=== PATIENT | male | born 1935 | race Caucasian/White ===

== ENCOUNTER → 2018-04-27 | Outpatient (CLI) | payer MEDICARE, OTHER ==
--- NOTE | 2018-04-27 16:51 | REP ---
Chest x-ray: Two views. History: Cough. Comparison study: September 27, 2014. Findings: There is a stable granuloma projecting in the left upper lung zone. The lungs are otherwise well inflated and clear. Pleural angles are sharp. Heart is not enlarged. The aorta is calcific and tortuous. There are degenerative changes in the thoracic spine. Impression: No active disease. Old granuloma left upper lung zone. Electronically Signed by Dajuan Clements MD 04/27/2018 04:43 P
== END ==
LOC: M LRY 16:14
PROVIDERS: ATTEND Physician Assistant
DX: J98.8 Other specified respiratory disorders (principal); R05 Cough
CPT/HCPCS: 71046; G0463

== ENCOUNTER → 2018-04-27 | Outpatient (CLI) | payer MEDICARE, OTHER | LOC: M LRY 16:18 | PROVIDERS: ATTEND Physician Assistant | DX: R05 Cough (principal); Z53.8 Procedure and treatment not carried out for other reasons ==

== ENCOUNTER 2018-05-30 09:56 | Emergency (ER) | payer MEDICARE, OTHER ==
[~2018-05-30] VITALS: Ht 165.1 cm; Wt 61.4 kg
--- NOTE | 2018-05-30 12:13 | REP ---
A PA and lateral chest: There are no comparisons. There is a 7 mm left upper lobe lung nodule. There are no infiltrates. No pleural effusions. Cardiac size is normal. The perez, mediastinum, skeletal structures are unremarkable except for a right humeral head orthopedic screw. Impression: Left upper lobe 7 mm lung nodule. Electronically Signed by Vickey Murray MD 05/30/2018 12:05 P
[2018-05-30 12:29] LABS: BASO % 0.3 % (0.0-1.0); EOS # 0.2 10^3/uL (0.0-0.50); EOS % 2.8 % (0.0-3.0); HEMATOCRIT 40.3 % (42.0-52.0); HEMOGLOBIN 13.6 g/dl (13.5-17.5); LYMPH # 1.1 10^3/uL (1.5-4.5); LYMPH % 18.4 % (24.0-44.0); MEAN CORPUSCULAR HEMOGLOBIN 32.9 pg (27.0-33.0); MEAN CORPUSCULAR HGB CONC 33.7 g/dl (32.0-36.5); MEAN CORPUSCULAR VOLUME 97.6 fl (80.0-96.0); MONO # 0.8 10^3/uL (0.0-0.8); MONO % 12.7 % (0.0-5.0); NEUTROPHILS % 65.5 % (36.0-66.0); PLATELET COUNT, AUTOMATED 283 10^3/uL (150-450); RED BLOOD COUNT 4.13 10^6/uL (4.30-6.10); WHITE BLOOD COUNT 6.1 10^3/uL (4.0-10.0)
[2018-05-30 12:54] LABS: ALBUMIN 3.6 GM/DL (3.2-5.2); ALT/SGPT 20 U/L (12-78); BILIRUBIN,DIRECT < 0.1 MG/DL (0.0-0.2); BILIRUBIN,TOTAL 0.7 MG/DL (0.2-1.0); BLOOD UREA NITROGEN 32 MG/DL (7-18); CARBON DIOXIDE LEVEL 29 MEQ/L (21-32); CHLORIDE LEVEL 105 MEQ/L (98-107); GLOMERULAR FILTRATION RATE > 60.0 (>35); GLUCOSE, FASTING 104 MG/DL (70-100); NT-PRO BNP 20 PG/ML (<450); POTASSIUM SERUM 5.1 MEQ/L (3.5-5.1); SODIUM LEVEL 138 MEQ/L (136-145); TOTAL PROTEIN 6.7 GM/DL (6.4-8.2)
[2018-05-30 13:27] VITALS: BP 119/62
[2018-05-30] MEDS ORDERED: MUCI600T37 PO (13:44)
[2018-05-30] MEDS ORDERED: BENZ200C70 PO (13:44)
--- NOTE | 2018-05-30 21:32 | ECGEPIP ---
Stationary ECG Study [facility] - ED Test Date: 2018-05-30 Pat Name: OSIRIS SYKES Department: Room: - Gender: M Spike Machine Feeder: : 1935 Requested By: JASON CALDERON PA-C. Order Number: [id number] Reading MD: Jim Nuñez Measurements Intervals [place] Rate: 66 P: 58 SD: 159 QRS: 69 QRSD: 137 T: -29 QT: 429 QTc: 452 Interpretive Statements SINUS RHYTHM INTRAVENTRICULAR CONDUCTION DELAY POSSIBLE ANTERIOR MYOCARDIAL INFARCTION, OF INDETERMINATE AGE NO PRIORS FOR COMPARISON Electronically Signed On 05-30-2018 21:31:58 EDT by Jim Nuñez
--- NOTE | 2018-05-31 14:57 | ED PDOC ---
Post-Departure Follow-Up dr mike green and GRACE fxed formal repoirt of cxr for fu hollyg John Hahn MD May 31, 2018 14:57
== END 2018-05-30 13:52 | disposition home or self-care (01) ==
LOC: MERGE 09:56 → M ED 09:56
DX: R05 Cough (principal); R91.1 Solitary pulmonary nodule; I10 Essential (primary) hypertension; N40.0 Benign prostatic hyperplasia without lower urinary tract symptoms; Z87.891 Personal history of nicotine dependence

== ENCOUNTER → 2018-08-05 | Outpatient (CLI) | payer MEDICARE, OTHER ==
[~2018-08-05] MED LIST: BENZ200C70 PO; MUCI600T37 PO
[2018-08-11 00:06] LABS: CRYPTOCOCCUS ANTIBODY SERUM Negative (Neg:<1:2)
== END ==
LOC: M LAB 12:56
PROVIDERS: ATTEND Nurse Practitioner Adult Health
DX: J67.2 Bird fancier's lung (principal)

== ENCOUNTER 2018-12-24 12:47 | Emergency (ER) | payer MEDICARE, OTHER ==
[~2018-12-24 12:47] MED LIST changes: -AMLO5TAB6 PO; -ASPI81CH10 PO; -HYDR25TAB PO; -LISI40TA PO; -TAMS1CAP17 PO
[2018-12-24] MEDS ORDERED: TAMS1CAP17 PO (14:16)
[2018-12-24] MEDS ORDERED: AMLO5TAB6 PO (14:16)
[2018-12-24] MEDS ORDERED: ASPI81CH10 PO (14:16)
[2018-12-24] MEDS ORDERED: HYDR25TAB PO (14:16)
[2018-12-24] MEDS ORDERED: LISI40TA PO (14:16)
--- NOTE | 2018-12-24 16:03 | REP ---
Clinical: Altered mental status. Comparison: 09/27/2014 . Findings: Age-related atrophy with periventricular leukomalacia and microvascular ischemic changes are appreciated. The ventricles and sulci are symmetric. Cassidy-white differentiation is maintained. There is no evidence for acute intracranial hemorrhage, mass/mass effect, pathology or infarction. No extra-axial fluid collection. Calvarium is intact. Paranasal sinuses and mastoid air cells are clear. Impression: Age related atrophy and microvascular ischemic changes. No acute intracranial hemorrhage, infarction, or mass/mass effect. Electronically Signed by Tre Quiñones MD 12/24/2018 03:54 P
[2018-12-24 16:12] LABS: BASO % 0.4 % (0.0-1.0); EOS # 0.2 10^3/uL (0.0-0.5); EOS % 2.6 % (0.0-3.0); HEMATOCRIT 40.5 % (42.0-52.0); HEMOGLOBIN 13.1 g/dl (13.5-17.5); LYMPH # 1.1 10^3/uL (1.5-5.0); LYMPH % 19.9 % (24.0-44.0); MEAN CORPUSCULAR HEMOGLOBIN 32.7 pg (27.0-33.0); MEAN CORPUSCULAR HGB CONC 32.3 g/dl (32.0-36.5); MONO # 0.7 10^3/uL (0.0-0.8); MONO % 12.3 % (0.0-5.0); NEUTROPHILS # 3.7 10^3/uL (1.5-8.5); NEUTROPHILS % 64.6 % (36.0-66.0); PLATELET COUNT, AUTOMATED 252 10^3/uL (150-450); RED BLOOD COUNT 4.01 10^6/uL (4.30-6.10); WHITE BLOOD COUNT 5.7 10^3/uL (4.0-10.0)
[2018-12-24 16:51] LABS: ALBUMIN 3.4 GM/DL (3.2-5.2); ALT/SGPT 24 U/L (12-78); BILIRUBIN,DIRECT 0.2 MG/DL (0.0-0.2); BILIRUBIN,TOTAL 0.6 MG/DL (0.2-1.0); BLOOD UREA NITROGEN 19 MG/DL (7-18); CALCIUM LEVEL 8.4 MG/DL (8.8-10.2); CARBON DIOXIDE LEVEL 31 MEQ/L (21-32); CHLORIDE LEVEL 104 MEQ/L (98-107); CK-MB VALUE MASS 2.2 NG/ML (<3.6); CPK CREATINE PHOSPHOKINASE 67 U/L (39-308); CREATININE FOR GFR 0.61 MG/DL (0.70-1.30); GLOMERULAR FILTRATION RATE > 60.0 (>35); GLUCOSE, FASTING 88 MG/DL (70-100); MB/CK RELATIVE INDEX 3.28 (< OR =4); POTASSIUM SERUM 3.8 MEQ/L (3.5-5.1); SODIUM LEVEL 141 MEQ/L (136-145); THYROID STIMULATING HORMONE 0.821 uIU/ML (0.358-3.740); TOTAL PROTEIN 6.3 GM/DL (6.4-8.2); TROPONIN I < 0.02 NG/ML (< 0.10)
[2018-12-24 17:14] LABS: BILIRUBIN, URINE MANUAL NEGATIVE (NEGATIVE); GLUCOSE, URINE (UA) MANUAL NEGATIVE (NEGATIVE); KETONE, URINE MANUAL NEGATIVE (NEGATIVE); UROBILINOGEN, URINE MANUAL NORMAL (NORMAL)
[2018-12-24 18:48] VITALS: BP 152/90
--- NOTE | 2018-12-25 11:56 | ECGEPIP ---
[facility] - ED Test Date: 2018-12-24 Pat Name: OSIRIS SYKES Department: Room: - Gender: Male Medical Attendant: PMO : 1935 Requested By: SHARMILA Davalos Order Number: [id number] Reading MD: Zora Hart Measurements Intervals [place] Rate: 62 P: 40 [place]: 132 QRS: 68 QRSD: 135 T: -43 QT: 462 QTc: 471 Interpretive Statements SINUS RHYTHM LBBB SIMILAR 09/27/14 Electronically Signed on 12-25-2018 11:55:56 EST by Zora Hart
== END 2018-12-24 18:49 | disposition home or self-care (01) ==
LOC: M ED 12:47
DX: J40 Bronchitis, not specified as acute or chronic (principal); R41.0 Disorientation, unspecified; I10 Essential (primary) hypertension; M43.26 Fusion of spine, lumbar region; Z87.891 Personal history of nicotine dependence; Z79.82 Long term (current) use of aspirin; Z79.899 Other long term (current) drug therapy
CPT/HCPCS: 36415; 70450; 71046; 80048; 80076; 82140; 82550; 82553; 83605; 84443; 84484; 85025; 87040; 93005; 93041; 94760; 99284; G0463

== ENCOUNTER → 2018-12-24 | Outpatient (CLI) | payer MEDICARE, OTHER ==
[~2018-12-24] MED LIST changes: +AMLO5TAB6 PO; +ASPI81CH10 PO; +HYDR25TAB PO; +LISI40TA PO; +TAMS1CAP17 PO
--- NOTE | 2018-12-24 10:43 | REP ---
Clinical: Cough. Technique: PA and lateral. Comparison: 05/30/2018. Findings: Mediastinum and cardiac silhouette are within normal limits and stable. Chronic changes are noted. Subtle basilar atelectasis cannot be excluded. No obvious effusion. No pneumothorax. Skeletal structures demonstrate age-related degenerative changes. Impression: Chronic stable changes. Cannot exclude trace basilar atelectasis. Electronically Signed by Tre Quiñones MD 12/24/2018 10:34 A
== END ==
LOC: M LRY 10:12
PROVIDERS: ATTEND Physician Assistant
DX: R91.8 Other nonspecific abnormal finding of lung field (principal); R05 Cough

== ENCOUNTER 2019-01-02 08:07 | Emergency (ER) | payer MEDICARE, OTHER ==
[~2019-01-02 08:07] MED LIST changes: +AMLO5TAB6 PO; +ASPI81CH10 PO; +HYDR25TAB PO; +LISI40TA PO; +TAMS1CAP17 PO
[2019-01-02 09:34] LABS: BASO % 0.6 % (0.0-1.0); EOS # 0.1 10^3/uL (0.0-0.5); EOS % 1.7 % (0.0-3.0); HEMATOCRIT 45.4 % (42.0-52.0); LYMPH % 22.3 % (24.0-44.0); MEAN CORPUSCULAR HEMOGLOBIN 33.3 pg (27.0-33.0); MEAN CORPUSCULAR VOLUME 100.9 fl (80.0-96.0); MONO # 0.7 10^3/uL (0.0-0.8); MONO % 14.5 % (0.0-5.0); NEUTROPHILS # 2.8 10^3/uL (1.5-8.5); NEUTROPHILS % 60.7 % (36.0-66.0); PLATELET COUNT, AUTOMATED 287 10^3/uL (150-450); WHITE BLOOD COUNT 4.6 10^3/uL (4.0-10.0)
[2019-01-02 10:12] LABS: ALBUMIN 3.7 GM/DL (3.2-5.2); ALT/SGPT 26 U/L (12-78); BILIRUBIN,DIRECT 0.2 MG/DL (0.0-0.2); BILIRUBIN,TOTAL 0.6 MG/DL (0.2-1.0); BLOOD UREA NITROGEN 20 MG/DL (7-18); CALCIUM LEVEL 9.4 MG/DL (8.8-10.2); CARBON DIOXIDE LEVEL 32 MEQ/L (21-32); CHLORIDE LEVEL 102 MEQ/L (98-107); CK-MB VALUE MASS 2.9 NG/ML (<3.6); CPK CREATINE PHOSPHOKINASE 88 U/L (39-308); CREATININE FOR GFR 0.81 MG/DL (0.70-1.30); GLOMERULAR FILTRATION RATE > 60.0 (>35); GLUCOSE, FASTING 94 MG/DL (70-100); LIPASE 116 U/L (73-393); POTASSIUM SERUM 4.3 MEQ/L (3.5-5.1); SODIUM LEVEL 139 MEQ/L (136-145); TOTAL PROTEIN 7.3 GM/DL (6.4-8.2); TROPONIN I < 0.02 NG/ML (< 0.10)
[2019-01-02] MEDS ORDERED: ISOVUE-370 76% 100ML VIAL (Q9967) As Ordered ONE (10:20)
[2019-01-02 10:24] LABS: OSMOLALITY SERUM 294 MOSM/KG (280-301)
[2019-01-02 10:26] LABS: VITAMIN B12 LEVEL 591 PG/ML (247-911)
[2019-01-02 10:28] LABS: FOLATE > 24.0 NG/ML (>5.4)
--- NOTE | 2019-01-02 10:58 | REP ---
CT abdomen and pelvis with IV but without oral contrast: History: Abdomen pain. CT contrast dose: 100 mL of intravenous Isovue [address] findings: Preliminary digital senior staff consultant radiograph is unremarkable. There is mild bilateral lower lobe pulmonary parenchymal fibrosis on lung window settings. The liver and the spleen are normal in size, homogeneous in texture. No adrenal lesion is seen. The gallbladder and pancreas are unremarkable. The kidneys enhance symmetrically. They are morphologically intact. There is a tiny cyst on the left kidney. Tortuous normal caliber aorta is seen with atherosclerotic plaquing. No retroperitoneal mass or adenopathy is seen. Seminal vesicles and urinary bladder are unremarkable. The prostate is mildly prominent but otherwise intact. There is left colonic diverticulosis without CT evidence of diverticulitis. The appendix is not visible. There is no inflammatory change adjacent to the cecal tip. Impression: Left colonic diverticulosis without diverticulitis changes. Somewhat prominent prostate gland. Otherwise unremarkable CT study abdomen and pelvis. No acute abnormality seen. Electronically Signed by Dajuan Clements MD 01/02/2019 01:46 P
--- NOTE | 2019-01-03 07:34 | ECGEPIP ---
[facility] - ED Test Date: 2019-01-02 Pat Name: OSIRIS SYKES Department: Room: - Gender: Male Composing Room Supervisor: : 1935 Requested By: Zora Hart Order Number: [id number] Reading MD: Claudio Briceno Measurements Intervals [place] Rate: 60 P: 48 [place]: 153 QRS: -7 QRSD: 138 T: 19 QT: 437 QTc: 440 Interpretive Statements SINUS RHYTHM LEFT BUNDLE BRANCH BLOCK Similar to tracing done 12-24-18 Electronically Signed on 01-03-2019 7:34:24 EST by Claudio Briceno
== END 2019-01-02 11:48 | disposition home or self-care (01) ==
LOC: M ED 08:07
DX: R41.0 Disorientation, unspecified (principal); G89.29 Other chronic pain; R10.9 Unspecified abdominal pain; I10 Essential (primary) hypertension; J45.909 Unspecified asthma, uncomplicated; E78.5 Hyperlipidemia, unspecified; Z79.899 Other long term (current) drug therapy; Z79.82 Long term (current) use of aspirin
CPT/HCPCS: 36415; 74177; 80048; 80076; 81001; 82140; 82550; 82553; 82607; 82746; 83690; 83930; 84443; 84484; 85025; 86780; 93005; 99284; Q9967

== ENCOUNTER 2019-10-05 19:24 | Emergency (ER) | payer MEDICARE, OTHER ==
[~2019-10-05 19:24] MED LIST changes: +AMLO1TAB24 PO; -AMLO5TAB6 PO
[2019-10-05] MEDS ORDERED: hydroCHLOROthiazide 12.5 MG CAPSULE ONE (22:38)
[2019-10-05] MEDS ORDERED: hydroCHLOROthiazide 12.5 MG CAPSULE As Ordered ONE (22:38)
[2019-10-05] MEDS ORDERED: lisinopriL 10 MG TAB As Ordered ONE (22:38)
[2019-10-05] MEDS ORDERED: amLODIPine 5 MG TAB ONE (22:38)
[2019-10-05] MEDS ORDERED: lisinopriL 10 MG TAB ONE (22:38)
[2019-10-05] MEDS ORDERED: amLODIPine 5 MG TAB As Ordered ONE (22:38)
--- NOTE | 2019-11-02 11:14 | ECGEPIP ---
[facility] - ED Test Date: 2019-10-05 Pat Name: OSIRIS SYKES Department: Room: - Gender: Male Target Worker: ENDER Watson : 1935 Requested By: RENETTA Romero Order Number: [id number] Reading MD: Zora Hart Measurements Intervals [place] Rate: 70 P: 67 [place]: 181 QRS: -5 QRSD: 138 T: 3 QT: 428 QTc: 465 Interpretive Statements SINUS RHYTHM LEFT BUNDLE BRANCH BLOCK ABNORMAL ECG BASELINE ARTIFACT LIMITES INTERPRETATE SEE SCANNED DOWNTIME REPORT
[2019-11-20 01:57] LABS: BASO # 0.1 10^3/uL (0.0-0.2); BASO % 0.7 % (0.0-1.0); EOS # 0.1 10^3/uL (0.0-0.5); EOS % 0.9 % (0.0-3.0); HEMATOCRIT 42.5 % (42.0-52.0); HEMOGLOBIN 14.1 g/dl (13.5-17.5); LYMPH # 0.9 10^3/uL (1.5-5.0); LYMPH % 12.8 % (24.0-44.0); MEAN CORPUSCULAR HEMOGLOBIN 32.6 pg (27.0-33.0); MEAN CORPUSCULAR HGB CONC 33.2 g/dl (32.0-36.5); MEAN CORPUSCULAR VOLUME 98.4 fl (80.0-96.0); MONO # 0.7 10^3/uL (0.0-0.8); MONO % 10.6 % (0.0-5.0); NEUTROPHILS # 5.1 10^3/uL (1.5-8.5); NEUTROPHILS % 74.7 % (36.0-66.0); PLATELET COUNT, AUTOMATED 272 10^3/uL (150-450); RED BLOOD COUNT 4.32 10^6/uL (4.30-6.10); WHITE BLOOD COUNT 6.9 10^3/uL (4.0-10.0)
[2019-11-20 02:02] LABS: APPEARANCE, URINE CLEAR (CLEAR); BACTERIA, URINE AUTO NEGATIVE (NEGATIVE); BILIRUBIN, URINE AUTO NEGATIVE (NEGATIVE); BLOOD, URINE BLOOD NEGATIVE (NEGATIVE); COLOR, URINE YELLOW (YELLOW); GLUCOSE, URINE (UA) AUTO NEGATIVE (NEGATIVE); KETONE, URINE AUTO NEGATIVE (NEGATIVE); LEUKOCYTE ESTERASE, URINE AUTO NEGATIVE (NEGATIVE); MUCUS, URINE SMALL (NEGATIVE); NITRITE, URINE AUTO NEGATIVE (NEGATIVE); PROTEIN, URINE AUTO NEGATIVE (NEGATIVE); RBC, URINE AUTO 2 /HPF (0-3); SPECIFIC GRAVITY URINE AUTO 1.021 (1.002-1.035); SQUAMOUS EPITHELIAL CELL UR AU 0 /HPF (0-6); UROBILINOGEN, URINE AUTO 0.2 mg/dL (0.0-2.0); WBC, URINE AUTO 1 /HPF (0-3)
[2019-12-29 11:48] LABS: ACETAMINOPHEN LEVEL < 2.0 UG/ML (10.0-30.0); ALBUMIN 3.6 GM/DL (3.2-5.2); ALT/SGPT 16 U/L (12-78); BILIRUBIN,DIRECT 0.1 MG/DL (0.0-0.2); BILIRUBIN,TOTAL 0.3 MG/DL (0.2-1.0); BLOOD UREA NITROGEN 22 MG/DL (7-18); CALCIUM LEVEL 8.6 MG/DL (8.8-10.2); CARBON DIOXIDE LEVEL 30 MEQ/L (21-32); CHLORIDE LEVEL 108 MEQ/L (98-107); CK-MB VALUE MASS 1.6 NG/ML (<3.6); CPK CREATINE PHOSPHOKINASE 71 U/L (39-308); CREATININE FOR GFR 0.72 MG/DL (0.70-1.30); ETHYL ALCOHOL (ETHANOL) < 0.003 % (0.000-0.010); FREE T4 0.87 NG/DL (0.76-1.46); GLOMERULAR FILTRATION RATE > 60.0 (>35); GLUCOSE, FASTING 110 MG/DL (70-100); MB/CK RELATIVE INDEX 2.25 (< OR =4); POTASSIUM SERUM 4.4 MEQ/L (3.5-5.1); SALICYLATE LEVEL < 1.7 MG/DL (5.0-30.0); SODIUM LEVEL 142 MEQ/L (136-145); TOTAL PROTEIN 7.1 GM/DL (6.4-8.2); TROPONIN I < 0.02 NG/ML (< 0.10)
[2019-12-29 11:52] LABS: AMPHETAMINES LEVEL URINE NEGATIVE (NEGATIVE); BARBITURATES URINE NEGATIVE (NEGATIVE); BENZODIAZEPINES URINE NEGATIVE (NEGATIVE); CANNABINOIDS URINE NEGATIVE (NEGATIVE); COCAINE METABOLITE URINE NEGATIVE (NEGATIVE); METHADONE URINE NEGATIVE (NEGATIVE); OPIATES URINE NEGATIVE (NEGATIVE); PHENCYCLIDINE URINE NEGATIVE (NEGATIVE)
== END 2019-10-06 01:20 | disposition home or self-care (01) ==
LOC: M ED 19:24
DX: F03.91 Unspecified dementia, unspecified severity, with behavioral disturbance (principal); I10 Essential (primary) hypertension; N40.0 Benign prostatic hyperplasia without lower urinary tract symptoms; Z79.899 Other long term (current) drug therapy; Z79.82 Long term (current) use of aspirin; Z91.030 Bee allergy status
CPT/HCPCS: 36415; 70450; 71046; 80048; 80076; 80307; 81001; 82550; 82553; 84439; 84443; 84484; 85025; 87086; 93005; 99284; G0480

== ENCOUNTER 2019-10-12 23:00 | Emergency (ER) | payer MEDICARE, OTHER ==
[2019-10-12 23:11] VITALS: BP 138/68
[2019-10-13] MEDS ORDERED: NS 1,000 ML IV ONE
[2019-10-13 01:08] LABS: BASO % 0.2 % (0.0-1.0); HEMATOCRIT 45.3 % (42.0-52.0); LYMPH # 0.7 10^3/uL (1.5-5.0); LYMPH % 5.5 % (24.0-44.0); MEAN CORPUSCULAR HEMOGLOBIN 32.7 pg (27.0-33.0); MEAN CORPUSCULAR HGB CONC 33.1 g/dl (32.0-36.5); MEAN CORPUSCULAR VOLUME 98.7 fl (80.0-96.0); MONO # 0.6 10^3/uL (0.0-0.8); MONO % 4.6 % (0.0-5.0); NEUTROPHILS % 89.2 % (36.0-66.0); PLATELET COUNT, AUTOMATED 301 10^3/uL (150-450); RED BLOOD COUNT 4.59 10^6/uL (4.30-6.10); WHITE BLOOD COUNT 12.3 10^3/uL (4.0-10.0)
[2019-10-13 01:24] LABS: ALBUMIN 4.2 GM/DL (3.2-5.2); ALT/SGPT 22 U/L (12-78); BILIRUBIN,DIRECT < 0.1 MG/DL (0.0-0.2); BILIRUBIN,TOTAL 0.4 MG/DL (0.2-1.0); BLOOD UREA NITROGEN 21 MG/DL (7-18); CALCIUM LEVEL 9.2 MG/DL (8.8-10.2); CARBON DIOXIDE LEVEL 32 MEQ/L (21-32); CHLORIDE LEVEL 104 MEQ/L (98-107); CK-MB VALUE MASS 2.4 NG/ML (<3.6); CPK CREATINE PHOSPHOKINASE 70 U/L (39-308); CREATININE FOR GFR 0.83 MG/DL (0.70-1.30); GLOMERULAR FILTRATION RATE > 60.0 (>35); GLUCOSE, FASTING 133 MG/DL (70-100); LIPASE 229 U/L (73-393); MB/CK RELATIVE INDEX 3.43 (< OR =4); SODIUM LEVEL 139 MEQ/L (136-145); TOTAL PROTEIN 8.1 GM/DL (6.4-8.2); TROPONIN I < 0.02 NG/ML (< 0.10)
[2019-10-13 01:26] LABS: INR 0.91; PROTHROMBIN TIME 12.4 SECONDS (11.8-14.0)
[2019-10-13 01:27] LABS: PARTIAL THROMBOPLASTIN TIME 26.7 SECONDS (25.0-38.4)
--- NOTE | 2019-11-08 09:30 | ECGEPIP ---
[facility] - ED Test Date: 2019-10-12 Pat Name: OSIRIS SYKES Department: Room: - Gender: Male Pharmaceutical Salesperson: greg : 1935 Requested By: VALERIA Lopes Order Number: [id number] Reading MD: Zora Hart Measurements Intervals [place] Rate: 67 P: [place]: 0 QRS: -14 QRSD: 145 T: 9 QT: 437 QTc: 462 Interpretive Statements ATRIAL FIBRILLATION LEFT BUNDLE BRANCH BLOCK ABNORMAL ECG SEE DOWNTIME SCANNED RECORD
== END 2019-10-13 02:14 | disposition home or self-care (01) ==
LOC: M ED 23:00
DX: R10.9 Unspecified abdominal pain (principal); R11.10 Vomiting, unspecified; I10 Essential (primary) hypertension; I25.10 Atherosclerotic heart disease of native coronary artery without angina pectoris; F03.90 Unspecified dementia, unspecified severity, without behavioral disturbance, psychotic disturbance, mood disturbance, and anxiety; N40.0 Benign prostatic hyperplasia without lower urinary tract symptoms; Z79.899 Other long term (current) drug therapy; Z79.82 Long term (current) use of aspirin

== ENCOUNTER 2020-06-26 04:17 | Inpatient (IN) | payer MEDICARE, OTHER ==
[~2020-06-26] VITALS: Ht 170.2 cm; Wt 76.8 kg
[~2020-06-26 04:17] MED LIST changes: +HYDR-3490 PO; -HYDR25TAB PO; -LISI40TA PO; +LISI40TA4 PO
[2020-06-26 05:41] LABS: VENOUS BASE EXCESS 2.2 (-2.0-2.0); VENOUS O2 SATURATION 75.9 % (60.0-80.0); VENOUS PARTIAL PRESSURE CO2 47.9 mmHg (38.0-50.0); VENOUS PH 7.384 UNITS (7.330-7.430); VENOUS STANDARD HCO3 25.9 MEQ/L; VENOUS TOTAL CO2 29.4 MEQ/L (24.0-28.0)
[2020-06-26 05:52] LABS: BASO % 0.5 % (0.0-1.0); EOS # 0.1 10^3/uL (0.0-0.5); EOS % 1.4 % (0.0-3.0); HEMATOCRIT 38.3 % (42.0-52.0); LYMPH # 1.2 10^3/uL (1.5-5.0); LYMPH % 20.8 % (24.0-44.0); MEAN CORPUSCULAR HGB CONC 33.9 g/dl (32.0-36.5); MEAN CORPUSCULAR VOLUME 97.2 fl (80.0-96.0); MONO # 0.7 10^3/uL (0.0-0.8); MONO % 12.5 % (2.0-8.0); NEUTROPHILS # 3.7 10^3/uL (1.5-8.5); NEUTROPHILS % 64.6 % (36.0-66.0); PLATELET COUNT, AUTOMATED 259 10^3/uL (150-450); RED BLOOD COUNT 3.94 10^6/uL (4.30-6.10); WHITE BLOOD COUNT 5.8 10^3/uL (4.0-10.0)
--- NOTE | 2020-06-26 06:00 | REPVR ---
PROCEDURE INFORMATION: Exam: XR Chest Exam date and time: 06/26/2020 5:45 AM Age: 84 years old Clinical indication: Other: AMS; Additional info: Altered mental status TECHNIQUE: Imaging protocol: XR of the chest. Views: 1 view. COMPARISON: CR CHEST 2 VIEW 12/24/2018 10:19 AM FINDINGS: Lungs: Unremarkable. No consolidation. Pleural spaces: Unremarkable. No pleural effusion. No pneumothorax. Heart/Mediastinum: Unremarkable. No cardiomegaly. Bones/joints: Unremarkable. IMPRESSION: No acute findings. Electronically signed by: Torito Salas On 06/26/2020 06:00:35 AM
--- NOTE | 2020-06-26 06:04 | REPVR ---
PROCEDURE INFORMATION: Exam: CT Head Without Contrast Exam date and time: 06/26/2020 5:45 AM Age: 84 years old Clinical indication: Altered mental status/memory loss TECHNIQUE: Imaging protocol: Computed tomography of the head without contrast. Radiation optimization: All CT scans at this facility use at least one of these dose optimization techniques: automated exposure control; mA and/or kV adjustment per patient size (includes targeted exams where dose is matched to clinical indication); or iterative reconstruction. COMPARISON: CT Head without contrast 10/05/2019 9:27 PM FINDINGS: Brain: There is bilateral basal ganglia calcifications. There is bilateral periventricular and subcortical white matter hypoattenuation with no obvious associated mass effect. Cerebral ventricles: There is age-related cerebral atrophy with secondary ventricular dilatation. Bones/joints: Unremarkable. No acute fracture. Paranasal sinuses: There is total opacification of the maxillary, sphenoid, ethmoid and frontal sinuses. Mastoid air cells: Visualized mastoid air cells are well aerated. Soft tissues: Unremarkable. IMPRESSION: 1. No CT evidence of acute intracranial hemorrhage, mass effect or midline shift. 2. No large acute territorial infarct seen. 3. Age-related cerebral atrophy with presumably chronic microangiopathic changes, grossly unchanged since October 05, 2019. 4. Extensive diffuse pansinus disease, grossly unchanged. Electronically signed by: Torito Salas On 06/26/2020 06:04:19 AM
[2020-06-26 06:19] LABS: ALBUMIN 3.8 GM/DL (3.2-5.2); ALT/SGPT 15 U/L (12-78); BILIRUBIN,DIRECT 0.1 MG/DL (0.0-0.2); BILIRUBIN,TOTAL 0.5 MG/DL (0.2-1.0); BLOOD UREA NITROGEN 18 MG/DL (7-18); CALCIUM LEVEL 9.5 MG/DL (8.8-10.2); CARBON DIOXIDE LEVEL 33 MEQ/L (21-32); CHLORIDE LEVEL 104 MEQ/L (98-107); CK-MB VALUE MASS 1.4 NG/ML (<3.6); CPK CREATINE PHOSPHOKINASE 83 U/L (39-308); ETHYL ALCOHOL (ETHANOL) < 0.003 % (0.000-0.010); GLOMERULAR FILTRATION RATE > 60.0 (>35); GLUCOSE, FASTING 117 MG/DL (70-100); MB/CK RELATIVE INDEX 1.69 (< OR =4); POTASSIUM SERUM 3.7 MEQ/L (3.5-5.1); SODIUM LEVEL 142 MEQ/L (136-145); TROPONIN I < 0.02 NG/ML (< 0.10)
[2020-06-26 06:42] LABS: OSMOLALITY SERUM 296 MOSM/KG (280-301)
[2020-06-26] MEDS ORDERED: MOM 30ML SUSPENSION UDC PO PRN (08:30)
[2020-06-26] MEDS ORDERED: ACETAMINOPHEN TAB 650MG DOSE (2X325MG) PO PRN (08:30)
[2020-06-26] MEDS ORDERED: MAALOX 30 ML SUSP *UDC PO PRN (08:30)
[2020-06-26] MEDS ORDERED: DONE10TA90 PO (08:41)
[2020-06-26] MEDS ORDERED: QUET100T2 PO (08:41)
[2020-06-26] MEDS ORDERED: AMLO1TAB25 PO (08:41)
[2020-06-26 08:51] LABS: AMPHETAMINES LEVEL URINE NEGATIVE (NEGATIVE); BARBITURATES URINE NEGATIVE (NEGATIVE); BENZODIAZEPINES URINE NEGATIVE (NEGATIVE); CANNABINOIDS URINE NEGATIVE (NEGATIVE); COCAINE METABOLITE URINE NEGATIVE (NEGATIVE); METHADONE URINE NEGATIVE (NEGATIVE); OPIATES URINE NEGATIVE (NEGATIVE); PHENCYCLIDINE URINE NEGATIVE (NEGATIVE)
[2020-06-26] MEDS: ASPIRIN 81 MG CHEW TABLET PO SCH (09:36)
[2020-06-26] MEDS: DOCUSATE SODIUM 100MG CAPSULE PO SCH ×2 (09:36→20:01)
[2020-06-26] MEDS: TAMSULOSIN 0.4 MG CAP PO SCH (09:36)
[2020-06-26 12:31] LABS: RSV AMPLIFICATION NEGATIVE (NEGATIVE)
[2020-06-26] MEDS ORDERED: LORazepam 2 MG/ML VIAL IV PRN (12:40)
[2020-06-26] MEDS: DONEPEZIL 5 MG TAB PO SCH (12:42)
--- NOTE | 2020-06-26 12:53 | HPEPDOC ---
[facility] Medical History & Physical Date of Admission June 26, 2020 Date of Service: June 26, 2020 History and Physical Chief complaint: Who was brought to the hospital for confusion History of present illness: Patient is an 84-year-old male who presented to the emergency room brought in by ambulance because he was confused and combative with his at home. Upon arrival to ER, patient has had an extensive workup completed. Patient had lab work imaging, all of which did not reveal any acute pathologies no signs of stroke or infection was noted. Patient appeared to be pleasant in the emergency room, however, did not know much about his past medical history. I have contacted the patients , daughter and son provided details to his story. Over the course of 1 year, patient has been having progression of his dementia. Yesterday patient was brought to the emergency room because he was more aggressive at home. Currently. While in the room. Patient denies any headache, chest pain, short of breath, palpitations, has not spent any nausea, vomiting, abdominal pain or diarrhea. Denies any urinary discomfort. Past Medical History: Dementia HTN BPH Hearing deficits Past Surgical History: No prior surgical history Allergies: See below Medications: See below Family History: - Reviewed and non-contributory Social History: - Denies the use of alcohol or illicit drugs; as per patients , patient was a smoker in the past but has quit several years ago but over last 6 months has started smoking - Denies recent travel or sick contacts - Lives with - Occupation; he is currently unemployed and living at home Review of Systems: 10 point review of systems complete, all negative otherwise stated in HPI Physical exam: - Vitals: BP [135/73], HR [62], RR [20], Sat [96%RA], Temp [98.6F] - General: Lying in bed, Speaking in full sentences, AAOx1 (not to place or time) - HEENT: NC, AT, PERRLA - CVS: RRR, +S1S2 - Lungs: Fair air entry bilaterally, No appreciable wheezing / rales / rhonchi - Abdomen: Soft, Non-distended, Non-tender - Extremities: Trace LE edema, No calf tenderness - Neuro: No focal motor or sensory deficit - Skin: No visible rashes Labs: See below Imaging: CXR 06/26: No acute findings. CT Chest 06/26: 1. No CT evidence of acute intracranial hemorrhage, mass effect or midline shift. 2. No large acute territorial infarct seen. 3. Age-related cerebral atrophy with presumably chronic microangiopathic joiner ges, grossly unchanged since October 05, 2019. 4. Extensive diffuse pansinus disease, grossly unchanged. EKG: See below Assessment and Plan: Confusion - likely 2/2 progression of dementia, less likely 2/2 infectious etiology - Patient presented to the emergency room because of increasing aggression at home - Physicals without any focal neurologic deficits. Patient is oriented to person only - Lab work is without any evidence of infection - Imaging noted above - Will continue with Seroquel 100 mg in the evening and add 50 mg the morning - Will continue with Ativan for anxiety / agitation - c/w Donepezil HTN - Blood pressure remains well controlled - c/w Lisinopril, HCTZ, Amlodipine BPH - c/w Tamsulosin Hearing deficits - c/w hearing aids DVT prophylaxis - Will start Heparin Disposition: - Case discussed with , daughter and son - Will discuss with PFS about placement [facility] Vital Signs Vital Signs Date Time Temp Pulse Resp B/P (MAP) Pulse Ox O2 Delivery O2 Flow Rate FiO2 06/26/20 12:35 61 95 06/26/20 12:30 20 122/60 (80) Room Air 06/26/20 11:47 98.6 Laboratory Data Labs 24H Laboratory Tests 2 06/26/20 05:16: Lactic Acid Level 1.3 06/26/20 05:26: Immature Granulocyte % (Auto) 0.2, Neutrophils (%) (Auto) 64.6, Lymphocytes (%) (Auto) 20.8L, Monocytes (%) (Auto) 12.5H, Eosinophils (%) (Auto) 1.4, Basophils (%) (Auto) 0.5, Neutrophils # (Auto) 3.7, Lymphocytes # (Auto) 1.2L, Monocytes # (Auto) 0.7, Eosinophils # (Auto) 0.1, Basophils # (Auto) 0.0, Nucleated Red Blood Cells % (auto) 0.0, Blood Gas Bicarbonate Standard 25.9, Venous Blood pH 7.384, Venous Blood Partial Pressure CO2 47.9, Venous Blood Partial Pressure O2 40.0, Venous Blood Total Carbon Dioxide 29.4H, Venous Blood HCO3 28.0H, Venous Blood Oxygen Saturation 75.9, Venous Blood Base Excess 2.2H, Anion Gap 5L, Glomerular Filtration Rate > 60.0, Osmolality 296, Calcium Level 9.5, Total Bilirubin 0.5, Direct Bilirubin 0.1, Aspartate Amino Transf (AST/SGOT) 12, Alanine Aminotransferase (ALT/SGPT) 15, Alkaline Phosphatase 58, Ammonia < 10, Total Creatine Kinase 83, Creatine Kinase MB 1.4, Creatine Kinase MB Relative Index 1.69, Troponin I < 0.02, Total Protein 7.0, Albumin 3.8, Albumin/Globulin Ratio 1.2, Thyroid Stimulating Hormone (TSH) 2.010, Ethyl Alcohol Level < 0.003 06/26/20 05:47: Urine Color STRAW, Urine Appearance CLEAR, Urine pH 5.0, Urine Specific [place] 1.006, Urine Protein NEGATIVE, Urine Glucose (UA) NEGATIVE, Urine Ketones NE GATIVE, Urine Blood NEGATIVE, Urine Nitrite NEGATIVE, Urine Bilirubin NEGATIVE, Urine Urobilinogen 0.2, Urine Leukocyte Esterase NEGATIVE, Urine WBC (Auto) 1, Urine RBC (Auto) 0, Urine Hyaline Casts (Auto) 3, Urine Bacteria (Auto) NEGATIVE, Urine Squamous Epithelial Cells 0, Urine Mucus (Auto) SMALL, Urine Sperm (Auto) , Urine Opiates Screen NEGATIVE, Urine Methadone Screen NEGATIVE, Urine Barbiturates Screen NEGATIVE, Urine Phencyclidine Screen NEGATIVE, Urine Amphetamines Screen NEGATIVE, Urine Benzodiazepines Screen NEGATIVE, Urine Cocaine Metabolite Screen NEGATIVE, Urine Cannabinoids Screen NEGATIVE 06/26/20 11:38: Coronavirus (COVID-19)(PCR) NEGATIVE, Influenza Type A (RT-PCR) NEGATIVE, Influenza Type B (RT-PCR) NEGATIVE, Respiratory Syncytial Virus (PCR) NEGATIVE CBC/BMP Laboratory Tests 06/26/20 05:26 Home Medications Scheduled Amlodipine Besylate (Amlodipine Besylate) 10 Mg Tablet, 10 MG PO DAILY Aspirin (Aspirin) 81 Mg Tab.chew, 81 MG PO DAILY Donepezil HCl (Donepezil HCl) 10 Mg Tablet, 10 MG PO DAILY Hydrochlorothiazide (Hydrochlorothiazide) 25 Mg Tablet, 25 MG PO DAILY Lisinopril (Lisinopril) 40 Mg Tablet, 20 MG PO DAILY Quetiapine Fumarate (Quetiapine Fumarate) 100 Mg Tablet, 100 MG PO QHS Tamsulosin Hcl (Tamsulosin HCl) 0.4 Mg Capsule, 0.4 MG PO DAILY Allergies Coded Allergies: No Known Allergies (Unverified , 05/31/18) JUSTICE KILGORE MD June 26, 2020 12:53
[2020-06-26] MEDS: QUEtiapine FUMARATE 50MG TAB PO SCH (13:46)
[2020-06-26] MEDS: HEPARIN SOD (PORCINE) 5000UNITS/ML 1ML VIAL/SYRINGE SC SCH ×2 (13:47→22:32)
[2020-06-26] MEDS ORDERED: QUEtiapine FUMARATE 12.5 MG HALF-TAB PO SCH (20:00)
[2020-06-26] MEDS ORDERED: QUEtiapine FUMARATE 50MG TAB PO SCH (20:00)
[2020-06-26] MEDS: QUEtiapine FUMARATE 100 MG TAB PO SCH (20:02)
[2020-06-26] MEDS ORDERED: QUEtiapine FUMARATE 25 MG TAB PO SCH (21:00)
[2020-06-26 22:00] VITALS: BP 137/88
[2020-06-27 06:00] VITALS: BP 144/68
[2020-06-27] MEDS: HEPARIN SOD (PORCINE) 5000UNITS/ML 1ML VIAL/SYRINGE SC SCH ×3 (06:07→21:44)
[2020-06-27 07:33] LABS: BASO % 0.9 % (0.0-1.0); EOS # 0.1 10^3/uL (0.0-0.5); EOS % 2.2 % (0.0-3.0); HEMOGLOBIN 13.1 g/dl (13.5-17.5); LYMPH # 1.2 10^3/uL (1.5-5.0); MEAN CORPUSCULAR HEMOGLOBIN 32.8 pg (27.0-33.0); MEAN CORPUSCULAR HGB CONC 33.6 g/dl (32.0-36.5); MEAN CORPUSCULAR VOLUME 97.7 fl (80.0-96.0); MONO # 0.7 10^3/uL (0.0-0.8); MONO % 14.3 % (2.0-8.0); NEUTROPHILS # 2.6 10^3/uL (1.5-8.5); NEUTROPHILS % 56.4 % (36.0-66.0); PLATELET COUNT, AUTOMATED 260 10^3/uL (150-450); RED BLOOD COUNT 3.99 10^6/uL (4.30-6.10); WHITE BLOOD COUNT 4.5 10^3/uL (4.0-10.0)
[2020-06-27 07:57] LABS: BLOOD UREA NITROGEN 15 MG/DL (7-18); CALCIUM LEVEL 8.9 MG/DL (8.8-10.2); CARBON DIOXIDE LEVEL 34 MEQ/L (21-32); CHLORIDE LEVEL 106 MEQ/L (98-107); CREATININE FOR GFR 0.75 MG/DL (0.70-1.30); GLOMERULAR FILTRATION RATE > 60.0 (>35); GLUCOSE, FASTING 99 MG/DL (70-100); MAGNESIUM LEVEL 1.9 MG/DL (1.8-2.4); POTASSIUM SERUM 3.4 MEQ/L (3.5-5.1); SODIUM LEVEL 143 MEQ/L (136-145)
[2020-06-27] MEDS: DONEPEZIL 5 MG TAB PO SCH (08:31)
[2020-06-27] MEDS: QUEtiapine FUMARATE 50MG TAB PO SCH (08:31)
[2020-06-27] MEDS: DOCUSATE SODIUM 100MG CAPSULE PO SCH ×2 (08:31→21:43)
[2020-06-27] MEDS: ASPIRIN 81 MG CHEW TABLET PO SCH (08:31)
[2020-06-27] MEDS: TAMSULOSIN 0.4 MG CAP PO SCH (08:31)
--- NOTE | 2020-06-27 12:40 | IPNPDOC ---
Text Note Date of Service The patient was seen on 06/27/20. NOTE Subjective: Patient is an 84-year-old male who presented to the ER, brought in by ambulance because he was confused and combative with his at home. Upon arrival to ER, patient has had an extensive workup completed. Patient had lab work imaging, all of which did not reveal any acute pathologies no signs of stroke or infection was noted. . She was admitted to the hospital service for further evaluation, treatment, and likely placement to [place] [facility] extensive discussion with patient's , daughter and son. Patient was seen and examined at the bedside. Patient appeared to be laying in bed, comfortable, not in any acute distress, reported his name and where he was was unsure of the date. Did not have any specific complaints. Objective: Vitals (See below) General: Lying in bed, appears comfortable, AAOx2 (not to time) HEENT: NC, AT CVS: +S1S2 Lungs: Fair air entry b/l, no evidence of wheezing, rhonchi, rales Abdomen: Soft, ND, NT Extremities: - Edema, - Calf tenderness Imaging: CXR 06/26: No acute findings. CT Head 06/26: 1. No CT evidence of acute intracranial hemorrhage, mass effect or midline shift. 2. No large acute territorial infarct seen. 3. Age-related cerebral atrophy with presumably chronic microangiopathic changes, grossly unchanged since October 05, 2019. 4. Extensive diffuse pansinus disease, grossly unchanged. Assessment and Plan: Confusion - likely 2/2 progression of dementia, less likely 2/2 infectious etiology - Patient presented to the ER because of increasing aggression at home - This morning patient appears to be more comfortable; not oriented to time - No focal deficits - Lab work is without any evidence of infection - Imaging noted above - c/w Seroquel 100 mg in the evening and 50 mg the morning - c/w Ativan for anxiety / agitation - c/w Donepezil Hypokalemia - Will supplement HTN - Blood pressure remains well controlled - Physical therapy signs of fluid overload - ECHO pending - was ordered to evaluate lower extremity edema - c/w Lisinopril, HCTZ, Amlodipine BPH - c/w Tamsulosin Hearing deficits - c/w hearing aids DVT prophylaxis - c/w Heparin Disposition: - Case discussed with , daughter and son on admission; looking into placement to [place] [facility] VS,Richard, I+O VS, [place], I+O Laboratory Tests 06/27/20 06:47 Vital Signs Date Time Temp Pulse Resp B/P (MAP) Pulse Ox O2 Delivery O2 Flow Rate FiO2 06/27/20 08:32 126/93 06/27/20 08:32 71 06/27/20 06:00 98.2 18 97 Room Air I&O- Last 24 Hours up to 6 AM 06/27/20 06:00 Intake Total 150 ml Output Total 0 ml Balance 150 ml JUSTICE KILGORE MD June 27, 2020 12:40
[2020-06-27] MEDS ORDERED: POTASSIUM CHLORIDE 10 MEQ SR TABLET PO ONE (13:00)
[2020-06-27 14:00] VITALS: BP 122/65
--- NOTE | 2020-06-27 16:57 | ECGEPIP ---
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
[2020-06-27 21:34] VITALS: BP 109/56
[2020-06-27] MEDS: QUEtiapine FUMARATE 100 MG TAB PO SCH (21:43)
[2020-06-28] MEDS: HEPARIN SOD (PORCINE) 5000UNITS/ML 1ML VIAL/SYRINGE SC SCH ×3 (05:33→22:29)
[2020-06-28 05:34] VITALS: BP 130/90
[2020-06-28 06:08] LABS: BASO # 0.1 10^3/uL (0.0-0.2); EOS # 0.1 10^3/uL (0.0-0.5); EOS % 2.1 % (0.0-3.0); HEMATOCRIT 41.6 % (42.0-52.0); HEMOGLOBIN 13.8 g/dl (13.5-17.5); LYMPH # 1.6 10^3/uL (1.5-5.0); MEAN CORPUSCULAR HEMOGLOBIN 32.7 pg (27.0-33.0); MEAN CORPUSCULAR HGB CONC 33.2 g/dl (32.0-36.5); MEAN CORPUSCULAR VOLUME 98.6 fl (80.0-96.0); MONO # 0.8 10^3/uL (0.0-0.8); MONO % 12.9 % (2.0-8.0); NEUTROPHILS # 3.6 10^3/uL (1.5-8.5); NEUTROPHILS % 57.8 % (36.0-66.0); PLATELET COUNT, AUTOMATED 307 10^3/uL (150-450); RED BLOOD COUNT 4.22 10^6/uL (4.30-6.10); WHITE BLOOD COUNT 6.3 10^3/uL (4.0-10.0)
[2020-06-28 06:27] LABS: BLOOD UREA NITROGEN 20 MG/DL (7-18); CALCIUM LEVEL 9.6 MG/DL (8.8-10.2); CARBON DIOXIDE LEVEL 34 MEQ/L (21-32); CHLORIDE LEVEL 108 MEQ/L (98-107); CREATININE FOR GFR 0.76 MG/DL (0.70-1.30); GLOMERULAR FILTRATION RATE > 60.0 (>35); GLUCOSE, FASTING 97 MG/DL (70-100); MAGNESIUM LEVEL 2.1 MG/DL (1.8-2.4); SODIUM LEVEL 144 MEQ/L (136-145)
--- NOTE | 2020-06-28 09:26 | IPNPDOC ---
Text Note Date of Service The patient was seen on 06/28/20. NOTE Subjective: Patient is an 84-year-old male who presented to the ER, brought in by ambulance because he was confused and combative with his at home. Upon arrival to ER, patient has had an extensive workup completed. Patient had lab work imaging, all of which did not reveal any acute pathologies no signs of stroke or infection was noted. . She was admitted to the hospital service for further evaluation, treatment, and likely placement to care home extensive discussion with patient's , daughter and son. Patient was seen and examined at the bedside. Patient was sitting up at the edge of the bed, appeared to be comfortable, was oriented to person and city was unsure of the building, but the date. Patient was talking tangentially about his childhood and his prior surgeries. Denied any chest pain, shortness breath or constipation. Objective: Vitals (See below) General: Sitting up at the edge of the bed, appeared comfortable, not in any acute distress, oriented to person and city HEENT: Normocephalic and atraumatic CVS: +S1S2 Lungs: Fair air entry b/l, there appears to be fair air entry bilaterally witho ut evidence of wheezing, crackles or rhonchi Abdomen: Remains soft without any appreciated tenderness or distention Extremities: No evidence of edema, - Calf tenderness Imaging: CXR 06/26: No acute findings. CT Head 06/26: 1. No CT evidence of acute intracranial hemorrhage, mass effect or midline shift. 2. No large acute territorial infarct seen. 3. Age-related cerebral atrophy with presumably chronic microangiopathic changes, grossly unchanged since October 05, 2019. 4. Extensive diffuse pansinus disease, grossly unchanged. Assessment and Plan: Confusion - likely 2/2 progression of dementia, less likely 2/2 infectious etiology - Presented to the ER because of increasing aggression at home - Patient is oriented to person and city - No focal deficits - No evidence of infection - Imaging noted above - c/w Seroquel 100 mg in the evening and 50 mg the morning - c/w Ativan for anxiety / agitation - c/w Donepezil s/p Hypokalemia HTN - Blood pressure remains well controlled - No signs of fluid overload - ECHO pending - was ordered to evaluate lower extremity edema; will have outpatient follow-up with primary care provider - c/w Lisinopril, HCTZ, Amlodipine BPH - c/w Tamsulosin Hearing deficits - c/w Hearing aids DVT prophylaxis - c/w Heparin Disposition: - Case discussed with , daughter and son on admission; looking into placement to care home - Will transition to [facility] status now VS,[place], I+O VS, Fishbone, I+O Laboratory Tests 06/28/20 05:31 Vital Signs Date Time Temp Pulse Resp B/P (MAP) Pulse Ox O2 Delivery O2 Flow Rate FiO2 06/28/20 05:34 97.4 74 20 130/90 (103) 94 Room Air I&O- Last 24 Hours up to 6 AM 06/28/20 06:00 Intake Total 710 ml Output Total 0 ml Balance 710 ml JUSTICE KILGORE MD June 28, 2020 09:26
[2020-06-28] MEDS: ASPIRIN 81 MG CHEW TABLET PO SCH (09:41)
[2020-06-28] MEDS: QUEtiapine FUMARATE 50MG TAB PO SCH (09:45)
[2020-06-28] MEDS: DONEPEZIL 5 MG TAB PO SCH (09:45)
[2020-06-28] MEDS: DOCUSATE SODIUM 100MG CAPSULE PO SCH ×2 (09:45→22:30)
[2020-06-28] MEDS: TAMSULOSIN 0.4 MG CAP PO SCH (09:45)
--- NOTE | 2020-06-28 10:26 | ECHO ---
DATE OF PROCEDURE: 06/27/2020 Age: 84 Gender: Male Height: 67 inches Weight: 176 pounds Body surface area: 1.92 m2 PATIENT LOCATION: Inpatient [address] [place] [address], Room 5140. REFERRING PHYSICIAN: Bailey Michael M.D. INDICATION: Edema. MEASUREMENTS: 2D Measurements: RV 3.1 cm LV 4.2 cm Septum 1.1 cm Posterior wall 1.1 cm Aortic Root 3.4 cm LA 4.2 cm LVEF 55% Doppler Measurements: AV 2.24 m/s LVOT 1.7 m/s LVOT diameter 1.8 cm Mean AV gradient 10 mmHg Dimensionless index 0.8 MV-E 80, A 110, E/A ratio 0.7 Early mitral deceleration time 372 msec E prime medial 5.8, A prime medial 8, E prime lateral 6.4 Average E/E prime ratio 13/PCWP - 18 mmHg PV 0.9 m/s Pulmonary artery acceleration time 111 msec RVSP 32 mmHg IVC 1.9 cm COMMENTS: Normal sinus rhythm/sinus bradycardia with left bundle branch block. M-mode and two-dimensional echocardiography was performed with pulse, continuous wave, color flow, and tissue Doppler studies. Normal left ventricular size and wall thickness. Septal wall motion abnormality related to left bundle branch block, but other left ventricular wall segments were hyperkinetic. Preserved global resting systolic function. Mildly dilated left atrium with grade 1 LV diastolic dysfunction and borderline increased mean left atrial pressure. Normal right ventricular size and wall motion with borderline pulmonary hypertension. Right atrial size upper limits of normal with normal IVC size and collapse against an elevated central venous pressure at this time. Normal aortic dimensions. Moderate aortic valvular sclerosis without outflow tract obstruction as determined by dimensionless index. No apparent insufficiency. Moderate mitral annular calcification, but normal leaflet excursion and no posterior systolic buckling. Very mild mitral insufficiency. Normal appearing tricuspid valve with mild insufficiency. No apparent intracardiac mass or pericardial effusion. MTDD
[2020-06-28 14:39] VITALS: BP 112/50
[2020-06-28] MEDS: QUEtiapine FUMARATE 100 MG TAB PO SCH (22:29)
[2020-06-28 22:30] VITALS: BP 125/66
[2020-06-29 05:40] VITALS: BP 155/78
[2020-06-29] MEDS: HEPARIN SOD (PORCINE) 5000UNITS/ML 1ML VIAL/SYRINGE SC SCH ×3 (06:00→21:34)
[2020-06-29] MEDS: DONEPEZIL 5 MG TAB PO SCH (08:45)
[2020-06-29] MEDS: ASPIRIN 81 MG CHEW TABLET PO SCH (08:45)
[2020-06-29] MEDS: DOCUSATE SODIUM 100MG CAPSULE PO SCH ×2 (08:45→21:33)
[2020-06-29] MEDS: TAMSULOSIN 0.4 MG CAP PO SCH (08:45)
[2020-06-29] MEDS: QUEtiapine FUMARATE 50MG TAB PO SCH (08:45)
[2020-06-29 14:00] VITALS: BP 109/61
[2020-06-29 21:31] VITALS: BP 106/62
[2020-06-29] MEDS: QUEtiapine FUMARATE 100 MG TAB PO SCH (21:33)
[2020-06-30] MEDS: HEPARIN SOD (PORCINE) 5000UNITS/ML 1ML VIAL/SYRINGE SC SCH ×4 (05:33→21:23)
[2020-06-30 05:57] LABS: BASO % 0.6 % (0.0-1.0); EOS # 0.1 10^3/uL (0.0-0.5); EOS % 1.5 % (0.0-3.0); HEMATOCRIT 36.1 % (42.0-52.0); LYMPH # 1.2 10^3/uL (1.5-5.0); LYMPH % 22.4 % (24.0-44.0); MEAN CORPUSCULAR HEMOGLOBIN 32.8 pg (27.0-33.0); MEAN CORPUSCULAR HGB CONC 33.2 g/dl (32.0-36.5); MEAN CORPUSCULAR VOLUME 98.6 fl (80.0-96.0); MONO # 0.7 10^3/uL (0.0-0.8); MONO % 13.3 % (2.0-8.0); NEUTROPHILS # 3.2 10^3/uL (1.5-8.5); PLATELET COUNT, AUTOMATED 262 10^3/uL (150-450); RED BLOOD COUNT 3.66 10^6/uL (4.30-6.10); WHITE BLOOD COUNT 5.2 10^3/uL (4.0-10.0)
[2020-06-30 06:00] VITALS: BP 119/56
[2020-06-30 06:14] LABS: BLOOD UREA NITROGEN 23 MG/DL (7-18); CALCIUM LEVEL 9.3 MG/DL (8.8-10.2); CARBON DIOXIDE LEVEL 28 MEQ/L (21-32); CHLORIDE LEVEL 107 MEQ/L (98-107); CREATININE FOR GFR 0.66 MG/DL (0.70-1.30); GLOMERULAR FILTRATION RATE > 60.0 (>35); GLUCOSE, FASTING 92 MG/DL (70-100); POTASSIUM SERUM 3.7 MEQ/L (3.5-5.1); SODIUM LEVEL 140 MEQ/L (136-145)
[2020-06-30] MEDS: DOCUSATE SODIUM 100MG CAPSULE PO SCH ×2 (10:38→21:19)
[2020-06-30] MEDS: QUEtiapine FUMARATE 50MG TAB PO SCH (10:38)
[2020-06-30] MEDS: ASPIRIN 81 MG CHEW TABLET PO SCH (10:38)
[2020-06-30] MEDS: TAMSULOSIN 0.4 MG CAP PO SCH (10:38)
[2020-06-30] MEDS: DONEPEZIL 5 MG TAB PO SCH (10:39)
[2020-06-30 14:00] VITALS: BP 110/57
[2020-06-30] MEDS: QUEtiapine FUMARATE 100 MG TAB PO SCH (21:19)
[2020-06-30 22:00] VITALS: BP 114/56
[2020-07-01] MEDS: HEPARIN SOD (PORCINE) 5000UNITS/ML 1ML VIAL/SYRINGE SC SCH ×2 (06:00→14:46)
[2020-07-01] MEDS: ASPIRIN 81 MG CHEW TABLET PO SCH (09:59)
[2020-07-01] MEDS: QUEtiapine FUMARATE 50MG TAB PO SCH (09:59)
[2020-07-01] MEDS: DOCUSATE SODIUM 100MG CAPSULE PO SCH ×2 (09:59→20:18)
[2020-07-01] MEDS: TAMSULOSIN 0.4 MG CAP PO SCH (09:59)
[2020-07-01] MEDS: DONEPEZIL 5 MG TAB PO SCH (10:00)
[2020-07-01 14:00] VITALS: BP 106/56
[2020-07-01] MEDS: QUEtiapine FUMARATE 100 MG TAB PO SCH (20:18)
[2020-07-01 22:00] VITALS: BP 100/49
[2020-07-02] MEDS: ASPIRIN 81 MG CHEW TABLET PO SCH (09:09)
[2020-07-02] MEDS: QUEtiapine FUMARATE 50MG TAB PO SCH (09:10)
[2020-07-02] MEDS: TAMSULOSIN 0.4 MG CAP PO SCH (09:10)
[2020-07-02] MEDS: DONEPEZIL 5 MG TAB PO SCH (09:10)
[2020-07-02] MEDS: DOCUSATE SODIUM 100MG CAPSULE PO SCH ×2 (09:10→21:31)
[2020-07-02 09:16] VITALS: BP 112/72
[2020-07-02] MEDS: QUEtiapine FUMARATE 100 MG TAB PO SCH (21:31)
[2020-07-03 06:17] LABS: BASO # 0.1 10^3/uL (0.0-0.2); BASO % 0.9 % (0.0-1.0); EOS # 0.1 10^3/uL (0.0-0.5); EOS % 1.5 % (0.0-3.0); HEMATOCRIT 37.6 % (42.0-52.0); HEMOGLOBIN 12.7 g/dl (13.5-17.5); LYMPH # 1.2 10^3/uL (1.5-5.0); LYMPH % 21.8 % (24.0-44.0); MEAN CORPUSCULAR HEMOGLOBIN 32.8 pg (27.0-33.0); MEAN CORPUSCULAR HGB CONC 33.8 g/dl (32.0-36.5); MEAN CORPUSCULAR VOLUME 97.2 fl (80.0-96.0); MONO # 0.6 10^3/uL (0.0-0.8); MONO % 11.7 % (2.0-8.0); NEUTROPHILS # 3.4 10^3/uL (1.5-8.5); NEUTROPHILS % 63.7 % (36.0-66.0); PLATELET COUNT, AUTOMATED 283 10^3/uL (150-450); RED BLOOD COUNT 3.87 10^6/uL (4.30-6.10); WHITE BLOOD COUNT 5.3 10^3/uL (4.0-10.0)
[2020-07-03 06:32] LABS: BLOOD UREA NITROGEN 20 MG/DL (7-18); CALCIUM LEVEL 8.7 MG/DL (8.8-10.2); CARBON DIOXIDE LEVEL 33 MEQ/L (21-32); CHLORIDE LEVEL 106 MEQ/L (98-107); CREATININE FOR GFR 0.78 MG/DL (0.70-1.30); GLOMERULAR FILTRATION RATE > 60.0 (>35); GLUCOSE, FASTING 108 MG/DL (70-100); MAGNESIUM LEVEL 2.1 MG/DL (1.8-2.4); POTASSIUM SERUM 4.2 MEQ/L (3.5-5.1); SODIUM LEVEL 141 MEQ/L (136-145)
[2020-07-03 06:48] VITALS: BP 163/76
[2020-07-03 07:00] VITALS: BP 155/75
[2020-07-03] MEDS: TAMSULOSIN 0.4 MG CAP PO SCH (10:34)
[2020-07-03] MEDS: QUEtiapine FUMARATE 50MG TAB PO SCH (10:34)
[2020-07-03] MEDS: ASPIRIN 81 MG CHEW TABLET PO SCH (10:35)
[2020-07-03] MEDS: DOCUSATE SODIUM 100MG CAPSULE PO SCH ×2 (10:35→21:04)
[2020-07-03] MEDS: DONEPEZIL 5 MG TAB PO SCH (10:35)
[2020-07-03] MEDS: QUEtiapine FUMARATE 100 MG TAB PO SCH (21:04)
[2020-07-04 06:00] VITALS: BP 151/78
[2020-07-04] MEDS: DONEPEZIL 5 MG TAB PO SCH (08:35)
[2020-07-04] MEDS: QUEtiapine FUMARATE 50MG TAB PO SCH (08:35)
[2020-07-04] MEDS: TAMSULOSIN 0.4 MG CAP PO SCH (08:35)
[2020-07-04] MEDS: DOCUSATE SODIUM 100MG CAPSULE PO SCH ×2 (08:36→20:16)
[2020-07-04] MEDS: ASPIRIN 81 MG CHEW TABLET PO SCH (08:36)
[2020-07-04] MEDS: QUEtiapine FUMARATE 100 MG TAB PO SCH (20:16)
[2020-07-05 06:00] VITALS: BP 126/65
[2020-07-05] MEDS: ASPIRIN 81 MG CHEW TABLET PO SCH (09:02)
[2020-07-05] MEDS: TAMSULOSIN 0.4 MG CAP PO SCH (09:03)
[2020-07-05] MEDS: DONEPEZIL 5 MG TAB PO SCH (09:03)
[2020-07-05] MEDS: DOCUSATE SODIUM 100MG CAPSULE PO SCH ×2 (09:03→20:27)
[2020-07-05] MEDS: QUEtiapine FUMARATE 50MG TAB PO SCH (09:04)
[2020-07-05] MEDS: QUEtiapine FUMARATE 100 MG TAB PO SCH (20:27)
[2020-07-06 06:00] VITALS: BP 119/56
[2020-07-06] MEDS: DONEPEZIL 5 MG TAB PO SCH (09:27)
[2020-07-06] MEDS: TAMSULOSIN 0.4 MG CAP PO SCH (09:28)
[2020-07-06] MEDS: DOCUSATE SODIUM 100MG CAPSULE PO SCH ×2 (09:28→20:33)
[2020-07-06] MEDS: ASPIRIN 81 MG CHEW TABLET PO SCH (09:28)
[2020-07-06] MEDS: QUEtiapine FUMARATE 50MG TAB PO SCH (09:28)
[2020-07-06] MEDS ORDERED: QUET50TA3 PO (12:05)
--- NOTE | 2020-07-06 13:14 | DS.PDOC ---
Discharge Summary General Date of Admission June 26, 2020 at 08:26 Date of Discharge 07/08/20 Discharge Summary PROCEDURES PERFORMED DURING STAY: [None]. DISCHARGE DIAGNOSES: Dementia HTN BPH Hearing deficits COMPLICATIONS/CHIEF COMPLAINT: Confusion. HISTORY OF PRESENT ILLNESS: Patient is an 84-year-old male who presented to the emergency room brought in by ambulance because he was confused and combative with his at home. Upon arrival to ER, patient has had an extensive workup completed. Patient had lab work imaging, all of which did not reveal any acute pathologies no signs of stroke or infection was noted. Patient appeared to be pleasant in the emergency room, however, did not know much about his past medical history. As per his family, over the course of 1 year, patient has been having progression of his dementia with worsening aggressive behavior. HOSPITAL COURSE: Patient was admitted for further evaluation and treatment with regards to his confusion and agitated behavior. No reversible etiology was determined. His be haviors were attributed to worsening dementia. Hospital stay was significant for lower extremity edema with some suspicion for congestive heart failure. An echocardiogram was obtained with no acute pathology. Hospital stay was otherwise unremarkable. Patient discharged to [facility] in [place]. DISCHARGE MEDICATIONS: Please see below. ALLERGIES: Please see below. PHYSICAL EXAMINATION ON DISCHARGE: VITAL SIGNS: Please see below. GENERAL: NAD LABORATORY DATA: Please see below. ACTIVITY: [As tolerated]. DISPOSITION: Discharge to [facility] in [place], [place]. DISCHARGE INSTRUCTIONS: 1. PCP in 3-5 days DISCHARGE CONDITION: [Stable]. TIME SPENT ON DISCHARGE: 35 minutes. Vital Signs/I&Os Vital Signs Date Time Temp Pulse Resp B/P (MAP) Pulse Ox O2 Delivery O2 Flow Rate FiO2 07/06/20 09:28 119/56 07/06/20 09:28 60 07/05/20 06:00 97.9 18 95 Room Air I&O- Last 24 Hours up to 6 AM 07/06/20 06:00 Intake Total 1620 ml Balance 1620 ml Discharge Medications Scheduled Amlodipine Besylate (Amlodipine Besylate) 10 Mg Tablet, 10 MG PO DAILY, (Reported) Aspirin (Aspirin) 81 Mg Tab.chew, 81 MG PO DAILY, (Reported) Donepezil HCl (Donepezil HCl) 10 Mg Tablet, 10 MG PO DAILY, (Reported) Hydrochlorothiazide (Hydrochlorothiazide) 25 Mg Tablet, 25 MG PO DAILY, (Reported) Lisinopril (Lisinopril) 40 Mg Tablet, 20 MG PO DAILY, (Reported) Quetiapine Fumarate (Quetiapine Fumarate) 100 Mg Tablet, 100 MG PO QHS, (Reported) Quetiapine Fumarate (Quetiapine Fumarate) 50 Mg Tablet, 50 MG PO DAILY Tamsulosin Hcl (Tamsulosin HCl) 0.4 Mg Capsule, 0.4 MG PO DAILY, (Reported) Allergies Coded Allergies: No Known Allergies (Unverified , 05/31/18) JOSÉ CARVER MD July 06, 2020 13:13
[2020-07-06] MEDS: QUEtiapine FUMARATE 100 MG TAB PO SCH (20:33)
[2020-07-07] MEDS: LORazepam 0.5 MG TAB PO PRN ×2 (00:07→16:39)
[2020-07-07 00:32] VITALS: BP 119/75
[2020-07-07] MEDS: TAMSULOSIN 0.4 MG CAP PO SCH (10:24)
[2020-07-07] MEDS: ASPIRIN 81 MG CHEW TABLET PO SCH (10:25)
[2020-07-07] MEDS: DONEPEZIL 5 MG TAB PO SCH (10:25)
[2020-07-07] MEDS: QUEtiapine FUMARATE 50MG TAB PO SCH (10:25)
[2020-07-07] MEDS: DOCUSATE SODIUM 100MG CAPSULE PO SCH ×2 (10:25→20:30)
[2020-07-07] MEDS: QUEtiapine FUMARATE 100 MG TAB PO SCH (20:30)
[2020-07-08 05:36] VITALS: BP 121/60
[2020-07-08] MEDS ORDERED: LORazepam 1 MG TAB PO SCH (09:00)
[2020-07-08] MEDS: DOCUSATE SODIUM 100MG CAPSULE PO SCH (09:34)
[2020-07-08] MEDS: ASPIRIN 81 MG CHEW TABLET PO SCH (09:34)
[2020-07-08] MEDS: DONEPEZIL 5 MG TAB PO SCH (09:39)
[2020-07-08] MEDS: TAMSULOSIN 0.4 MG CAP PO SCH (09:39)
[2020-07-08] MEDS: QUEtiapine FUMARATE 50MG TAB PO SCH (09:39)
[2020-07-08 09:40] VITALS: BP 127/69
== END 2020-07-08 11:50 | DRG 884 ==
LOC: M ED 04:17 → M ED INP 08:26 → ENRESERV 16:00 → M MS5PR 16:56
PROVIDERS: ADMIT Internal Medicine; ATTEND Internal Medicine
DX: F03.91 Unspecified dementia, unspecified severity, with behavioral disturbance (principal); I10 Essential (primary) hypertension; Z79.82 Long term (current) use of aspirin; Z79.899 Other long term (current) drug therapy; N40.0 Benign prostatic hyperplasia without lower urinary tract symptoms; E87.6 Hypokalemia